=== PATIENT | female | born 1980 | race Caucasian/White ===

== ENCOUNTER 2023-10-30 04:12 | Day surgery (SDC) | payer BC ==
[2023-10-24 15:47] VITALS: BMI 24.2
[2023-10-30] MEDS ORDERED: BACITRACIN ZINC 15 GM TUBE TOPICAL OINTMENT ONE (11:07)
[2023-10-30] MEDS ORDERED: LIDOCAINE 1%/EPI 1:100000 (20 ML MULTI DOSE VIAL) ONE (11:07)
[2023-10-30] MEDS ORDERED: MIDAZOLAM HCL 2 MG/2 ML SINGLE DOSE VIAL ONE (12:02)
[2023-10-30] MEDS ORDERED: ROCURONIUM BROMIDE 50 MG/5 ML SYRINGE ONE (12:02)
[2023-10-30] MEDS ORDERED: PROPOFOL 40 ML ONE (12:02)
[2023-10-30] MEDS ORDERED: HYDROmorphone HCl 2 MG/ML VIAL ONE (12:03)
[2023-10-30] MEDS ORDERED: DEXMEDETOMIDINE HCL 200 MCG/2 ML IVPB ONE (12:06)
[2023-10-30] MEDS ORDERED: LIDOCAINE HCL/PF 2% SDV 5ML VIAL ONE (12:17)
[2023-10-30] MEDS: ceFAZolin SODIUM 1 GM VIAL IVPB ONE (12:35)
[2023-10-30] MEDS: LIDOCAINE 1%/EPI 1:100000 (20 ML MULTI DOSE VIAL) IJ ONE (12:40)
[2023-10-30] MEDS: OXYMETAZOLINE 0.05% NASAL SOLUTION 15 ML BOTTLE NS ONE (12:40)
[2023-10-30] MEDS ORDERED: NEOSTIGMINE METHYLSULFATE 0.5 MG/1 ML - 10 ML MDV ONE (14:17)
[2023-10-30] MEDS ORDERED: oxyCODONE HCL 5 MG TABLET PO PRN (14:35)
[2023-10-30] MEDS ORDERED: LACTATED RINGERS SOLUTION 1,000 ML IV SCH (14:45)
[2023-10-30] MEDS ORDERED: ONDANSETRON 4 MG/2 ML VIAL ONE (14:56)
[2023-10-30] MEDS: ONDANSETRON 4 MG/2 ML VIAL IVPUSH PRN (14:59)
[2023-10-30 16:21] VITALS: RESP 18
[2023-10-30 17:27] VITALS: BP 118/81; PULSE 79; TEMP 98.6
== END 2023-10-30 17:24 | disposition home or self-care (01) ==
LOC: JASU-SURG 04:12
PROVIDERS: ATTEND Otolaryngology
PROC: 09TU8ZZ Resection of Right Ethmoid Sinus, Via Natural or Artificial Opening Endoscopic (ICD-10-PCS; 2023-10-30)
PROC: 8E09XBZ Computer Assisted Procedure of Head and Neck Region (ICD-10-PCS; 2023-10-30)
PROC: 09TL7ZZ Resection of Nasal Turbinate, Via Natural or Artificial Opening (ICD-10-PCS; 2023-10-30)
PROC: 09TV8ZZ Resection of Left Ethmoid Sinus, Via Natural or Artificial Opening Endoscopic (ICD-10-PCS; principal; 2023-10-30 12:00)
DX: J32.4 Chronic pansinusitis (principal)
CPT/HCPCS: 88304-TC; 88311-TC; 94760